=== PATIENT | female | born 1970 | race Caucasian/White ===

== ENCOUNTER 2019-03-25 09:58 | Emergency (ER) | payer MEDICAID, SELFPAY ==
[~2019-03-25] VITALS: Ht 167.6 cm; Wt 64.0 kg
[2019-03-25] MEDS ORDERED: SODIUM CHLORIDE 0.9% 1,000 ML IV ONE (10:08)
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
[2019-03-25] MEDS ORDERED: KETOROLAC 30 MG/1 ML ONE (10:13)
[2019-03-25] MEDS ORDERED: SODIUM CHLORIDE FLUSH 10ML SYR IVF ONE (10:30)
[2019-03-25] MEDS ORDERED: KETOROLAC 30 MG/1 ML IVPush ONE (10:30)
--- NOTE | 2019-03-25 10:35 | NUR ---
PT UP SELF WITH STEADY GAIT TO RR TO PROVIDE URINE SAMPLE. PT EDUCATED ON CLEAN CATCH TECHNIQUE BUT STATES IS CURRENTLY ON HER PERIOD. SAMPLE COLLECTED KIRSTIN SENT TO LAB.
[2019-03-25 10:44] LABS: BASOPHILS # (AUTO) 0.07 x10^3/uL (0-0.1); BASOPHILS % (AUTO) 1 % (0-1); EOSINOPHILS % (AUTO) 0 % (1-7); LYMPHOCYTES # (AUTO) 1.41 x10^3/uL (1-3.4); LYMPHOCYTES % (AUTO) 13 % (22-44); MD NO; MEAN CORPUSCULAR HGB CONC 33.5 g/dL (32.4-35.8); MEAN CORPUSCULAR VOLUME 95.6 fL (80-100); MEAN PLATELET VOLUME 8.1 fL (7.4-10.4); MONOCYTES # (AUTO) 0.49 x10^3/uL (0.2-0.8); MONOCYTES % (AUTO) 5 % (2-9); NEUTROPHILS # (AUTO) 8.69 x10^3/uL (1.8-6.8); NEUTROPHILS % (AUTO) 82 % (42-75); PLATELET COUNT 251 x10^3/uL (130-400); RED BLOOD COUNT 4.55 x10^6/uL (3.82-5.3); RED CELL DISTRIBUTION WIDTH 12.5 % (9.6-15.2)
[2019-03-25 10:55] LABS: HCG UR SG 1.015 (1.003-1.030); MICROSCOPIC AUTO
[2019-03-25 10:56] LABS: CULTURE INDICATED? YES
[2019-03-25 10:57] LABS: ALANINE AMINOTRANSFERASE 19 U/L (12-78); ALBUMIN 3.8 g/dL (3.4-5.0); ANION GAP 11 mmol/L (5-15); CALCIUM 8.7 mg/dL (8.5-10.1); CHLORIDE 112 mmol/L (98-107); CREATININE 0.88 mg/dL (0.55-1.02)
[2019-03-25 11:00] LABS: ALKALINE PHOSPHATASE 56 U/L (45-117); BILIRUBIN,TOTAL 0.3 mg/dL (0.2-1.0); TOTAL PROTEIN 7.2 g/dL (6.4-8.2)
--- NOTE | 2019-03-25 11:25 | NUR ---
PT RESTING IN ROOM [facility] EYES CLOSED. VSS. NO NEEDS EXPRESSED. CALL LIGHT WITHIN REACH. AWAITING CTA.
[2019-03-25] MEDS ORDERED: zantac (11:28)
[2019-03-25] MEDS ORDERED: OMNIPAQUE 350 MG/ML, 100ML BOTTLE ONE (11:55)
[2019-03-25 12:42] VITALS: BP 128/82
--- NOTE | 2019-03-25 12:42 | NUR ---
UPON ENTRY, PT IN ROOM ARGUING WITH SO. SO ASKED TO WAIT IN LOBBY. WHEN RN RETURNED, SO WAS AT BS AGAIN. PT TALKING ON THE PHONE AND TEARFUL. SO AGAIN ASKED TO WAIT IN LOBBY. AFTER CONVERSATION [facility] PT REGARDING SO, PT STATES "SHE'S OK AND HE CAN COME BACK IN." PT TACHY UPON ENTRY, BUT HR SLOWED AFTER HR CALMED DOWN. PT AND SO WILL BE EDUCATED THAT IF HE COMES BACK IN, THERE WILL BE NO ARGUING OR RAISING VOICES. NO NEEDS EXPRESSED AT THIS TIME. CALL LIGHT WITHIN REACH. AWAITING CTA RESULTS.
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
--- NOTE | 2019-03-25 13:18 | NUR ---
Patient/Caregiver given discharge instructions and they have confirmed that they understand the instructions. Patient ambulatory with steady gait. PIV removed with tip intact.
== END 2019-03-25 13:20 | disposition home or self-care (01) ==
LOC: ED 13:00
DX: R07.2 Precordial pain (principal)
CPT/HCPCS: 36415; 71275; 74175; 80053; 81001; 81025; 83690; 85025; 87077; 87086; 87186; 93005; 99284; J7030; Q9967